=== PATIENT | female | born 1985 | race Caucasian/White ===

== ENCOUNTER 2016-05-26 12:41 | Emergency (ER) | payer MEDICAID ==
[~2016-05-26] VITALS: Ht 154.9 cm; Wt 65.8 kg
[2016-05-26 13:05] VITALS: BP_SYST 145
--- NOTE | 2016-05-26 13:13 | NUR ---
Pt to bed 5
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
--- NOTE | 2016-05-26 13:22 | NUR ---
DR. ROSADO AT BEDSIDE EXAMINING THE PT.
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
[2016-05-26 13:55] VITALS: BP_SYST 113
--- NOTE | 2016-05-26 13:55 | NUR ---
Patient given written and verbal discharge instructions and verbalizes understanding. ER MD dr. patterson discussed with patient the results and treatment provided. Patient in stable condition. ID arm band removed. Rx of augmentin chloehexidine gluconate given. Patient educated on pain management and to follow up with PMD. Pain Scale 0/10 Opportunity for questions provided and answered.
== END 2016-05-26 13:55 | disposition home or self-care (01) ==
LOC: SED 12:41
DX: S01.511A Laceration without foreign body of lip, initial encounter (principal); J45.909 Unspecified asthma, uncomplicated; G43.909 Migraine, unspecified, not intractable, without status migrainosus; Y04.0XXA Assault by unarmed brawl or fight, initial encounter; Y93.89 Activity, other specified; Y92.89 Other specified places as the place of occurrence of the external cause; Y99.8 Other external cause status
CPT/HCPCS: 99283